=== PATIENT | female | born 1995 ===

== ENCOUNTER → 2024-05-27 06:40 | Day surgery (SDC) | payer OTHER, SELFPAY | LOC: GI 06:40 | PROVIDERS: ATTENDING PHYSICIAN Internal Medicine Gastroenterology | DX: R19.4 Change in bowel habit (principal); Z83.719 Family history of colon polyps, unspecified | CPT/HCPCS: 45380; 88305 ==

== ENCOUNTER 2025-05-19 18:18 | Emergency (ER) | payer OTHER, SELFPAY ==
[2025-05-19 18:21] VITALS: BP 169/100
[2025-05-19 18:42] LABS: Hematocrit 34.7 % (37.0-47.0); Hemoglobin 11.6 g/dL (12.0-16.0); Mean Corp Hgb Conc. 33.4 g/dL (33.0-37.0); Mean Corpuscular Volume 82.6 fL (81.0-99.0); Nucleated Red Blood Cells % 0 %; Platelet Count 279 10^3/uL (130-400); Red Cell Dist. Width 14.4 % (11.5-14.5)
[2025-05-19 18:54] LABS: APTT 28.4 Sec (23.4-35.0)
[2025-05-19 19:09] LABS: ALT (SGPT) 17 U/L (0-35); AST (SGOT) 19 U/L (14-36); Albumin 4.1 g/dl (3.5-5.0); Alkaline Phosphatase 87 U/L (38-126); Blood Urea Nitrogen 10 mg/dl (7-17); Calcium 9.0 mg/dl (8.4-10.2); Carbon Dioxide 26 mmol/L (22-30); Chloride 107 mmol/L (98-107); Glucose 91 mg/dl (70-99); Potassium 4.0 mmol/L (3.5-5.1); Sodium 138 mmol/L (135-145); Total Protein 6.8 g/dl (6.3-8.2); eGFR > 60.00
[2025-05-19 19:20] LABS: Troponin I < 0.012 ng/ml
--- NOTE | 2025-05-19 19:45 | ED.GENMED ---
History of Present Illness
General
Chief Complaint: Skin Problem
Source: patient
Time Seen by Provider: 05/19/25 19:29
History of Present Illness
History of Present Illness:
29-year-old female presents to the emergency room complaining of pain located from the back of her neck down to her chin and lateral left neck. Pain began 3 to 4 days ago. She noticed the pain after having a deep tissue massage. Pain has been
present as mentioned for 3 days or so. She noted a rash over the past day or so. Patient was seen at an urgent care yesterday where they did x-rays that were unremarkable. They recommended she come to the emergency room for a CAT scan. Because
of the pain persisting and making it difficult for her to sleep she is decided to come for evaluation today. Patient denies any fever or chills. She is also noted a couple 'lumps' behind her left ear. Affected area also has a 'itchy' sensation.
Phy Exam
Physical Exam
Physical Exam:
General: Awake, Alert, Oriented X3. No acute distress.
Vitals: unremarkable
Head: Atraumatic
Eyes: Pupils equal, EOMI
Throat: Airway intact, no exudates
Neck: Trachea midline, no thyromegaly
Neuro: Nonfocal
Skin: Warm, dry, vesicular lesions noted anterior chin with other vesicular patches noted along her left neck and behind her left ear. Area X visibly tender to light palpation.
Extremities: pulses equal b/l, no edema
Course
Orders/Labs/Results
Orders:
Orders
05/19/25 18:25
ECG [Electrocardiogram (*1)] Urgent
Reason for Study: Other
Other Reason for Exam: neck swelling
05/19/25 18:26
EKG- Treatment ONCE
05/19/25 18:34
Complete Blood Count/With Diff Urgent
Comprehensive Metabolic Panel Urgent
PTT Urgent
Troponin I Urgent
05/19/25 19:45
Valacyclovir HCl [Valtrex] 1,000 mg PO NOW STA
Abnormal Lab Results
05/19/25
18:34
Hgb 11.6 L g/dL
(12.0-16.0)
Hct 34.7 L %
(37.0-47.0)
05/19/25 18:34
05/19/25 18:34
Vital Signs
Initial and Last Documented VS:
Initial Vital Signs
Temp Pulse Resp BP Pulse Ox
98.0 F 107 20 169/100 96
05/19/25 18:21 05/19/25 18:21 05/19/25 18:21 05/19/25 18:21 05/19/25 18:21
Last Documented Vital Signs
Temp Pulse Resp BP Pulse Ox
98.0 F 88 18 133/89 99
05/19/25 18:21 05/19/25 19:58 05/19/25 19:58 05/19/25 19:58 05/19/25 19:58
MDM/Problems Addressed
Differential Diagnosis Includes:
Zoster, cellulitis
MDM/Problems Addressed:
Patient presents to the emergency room with pain of her left neck and a rash extending from the painful area to her chin. Patient initially associated the pain with a deep tissue massage. Physical exam is highly suggestive of herpes zoster with
clusters of vesicular lesions on erythematous base. Explained the pathophysiology of shingles. Recommend avoidance of close contact with immunocompromised or those were unimmunized to chickenpox.
*Pulse Oximetry
SaO2: 96
Oxygen Mode of Delivery: Room air
Patient hypoxic: no
*Critical Care Note
Total Time (30-74mins, 75-104mins- exclusive of procedures): Not Applicable
ED Attending Note
-
Portions of this chart may have been created with voice recognition software.� Occasional wrong word or��sound alike� substitutions may have occurred due to the inherent limitations of voice recognition software.
Discharge Plan
Departure
Patient Disposition: Home (Routine Discharge)
Date of Disposition: 05/19/25
Time of Disposition: 19:52
Patient with high blood pressure during this ER visit?: Yes
Condition: Good
Discharge Problem:
Herpes zoster
Instructions: Shingles, BLOOD PRESSURE
Prescriptions:
New
valacyclovir [Valtrex] 1 gram tablet
1,000 mg PO TID Qty: 21 0RF
Referrals:
NONE,* [Family Provider, Internal Medicine]
Activity Restrictions/Additional Instructions:
You can take 1000 mg of acetaminophen and 600 mg of ibuprofen every 6 hours for the pain related to your rash. Avoid close contact with anyone not vaccinated to chickenpox or who may be immunocompromised.
Interventions
Interventions:
*General Assessment Last Done: 05/19/25 18:21
*Nursing Disposition Last Done: 05/19/25 20:26
ED-Skin Assessment Last Done: 05/19/25 20:21
Discharge Date and Time
Discharge Date/Time: 05/19/25 20:28
Print Language: [id number]
[2025-05-19] MEDS: VALTREX 1000 MG PO (19:54)
[2025-05-19 19:58] VITALS: BP 133/89
== END 2025-05-19 20:28 | disposition home or self-care (01) ==
LOC: EMR 18:18
PROVIDERS: Emergency Medicine; EMERGENCY PHYSICIAN Emergency Medicine
DX: B02.9 Zoster without complications (principal)
CPT/HCPCS: 99283; 80053; 84484; 85025; 85730; 93005